=== PATIENT | female | born 1990 | race Caucasian/White ===

== ENCOUNTER 2021-10-18 05:44 | Day surgery (SDC) | payer MEDICAID, SELFPAY ==
[2021-10-18 06:21] VITALS: BP 104/68; PULSE 85; RESP 18; TEMP 36.8; O2SAT 99; BMI 31.0
[2021-10-18] MEDS: Lactated Ringers 1,000 ML 15 ML IV (06:43)
[2021-10-18 06:45] LABS: Internal QC Validated? YES +Cl - CLEAR BKGD; Pregnancy, Urine Negative Negative
[2021-10-18 06:51] LABS: Hematocrit 40.2 % (37-47); Hemoglobin 13.7 g/dL (12.0-15.0); Mean Corp Hgb Conc 34.1 g/dL (32-36); Mean Corpuscular Hgb 31.9 pg (27.0-32.0); Mean Corpuscular Volume 93.7 fL (81-99); Mean Platelet Vol. 8.6 fl (6.2-12.0); Platelet Count 350 K/mm3 (150-450); RBC Distribution Width CV 11.5 % (11.6-14.6); RBC Distribution Width SD 38.9 fl (35.1-43.9); Red Blood Count 4.29 M/mm3 (4.2-5.4); White Blood Count 7.6 K/mm3 (4.4-11.0)
--- NOTE | 2021-10-18 07:30 | EMB_PTH ---
PATIENT: RAMÓN KERR LOC: [facility] [place][id number] AGE/SX: 31/F ROOM: RE10/18/[address]: Dr. Veronika Chery DO : 1990 BED: DIS: 10/18/2021 SPEC #: [id number] RECD: 10/18/21 12:57 STATUS: AYE HICKEY #: [id number] YUNIEL: 10/18/21 07:[address]: Veronika Chery DEPT: SURGICAL PATHOLOGY RECD BY: Samira Sullivan ENTERED: 10/18/21 13:33 SP TYPE: ENDOM BX/C OTHR DR: Dr. Grant Prince MD Tissues: Endometrium, NOS Procedures: Surgery Specimen Level IV HEADER OPERATION: Hysteroscopy, D & C Symphion, polypectomy PRE-OP DIAGNOSIS: DUB, uterine polyp on US TISSUE SUBMITTED: Endometrial curettings MICROSCOPIC DIAGNOSIS Endometrial curettings: Scant minute fragment of benign endometrial tissue. Fragments of benign ecto- and endocervical mucosa with chronic inflammation and squamous metaplasia, blood and mucous. See comment. VINITA:paige 10/19/2021 COMMENT The specimen predominantly consists of blood, fragments of ecto- and endocervical mucosa. Further evaluation of endometrium is not possible due to scant fragment of endometrial tissue. Clinical correlation and appropriate follow up are necessary. MICROSCOPIC DESCRIPTION Slides are reviewed. GROSS DESCRIPTION Received in fixative is one container labeled with the patient's name and designated endometrial curettings. The specimen consists of multiple fragments of hemorrhagic soft tissue that in aggregate measure 2.5 x 2 x 0.1 cm. The specimen is totally submitted in one cassette. / VINITA:paige 10/18/21 TC: Cannot code CPT: 51247
[2021-10-18] MEDS: Lidocaine 1% (30 ml sdv) 30 ML Vial (07:45)
--- NOTE | 2021-10-18 08:11 | DCINST_ITS ---
Discharge Instructions Diet Discharge Diet: No restrictions Activity Discharge Activity: Return to Normal Activity, May Not Drive (for 24 hours after surgery) and May Shower May resume sexual activity in: 1 week (no intercourse, tampons, hot tubs, tub b aths for 1 week) Weight Bearing Status: Weight bearing as tolerated Lifting Restrictions: none Dressing / Incision Call your doctor if you observe: Fever of 101 or Higher, Numbness or Tingling, Inability to urinate, Inability to have a bowel movement, Using more than 1 pad per hour, Shortness of breath, Dizziness, Swelling in the ankles, Chest pain, Increased palpitations (irregular heartbeat), Calf discomfort and Uncontrolled pain Follow Up Care Please Follow Up With: Vik When: 1-2 weeks Test Results: Test results from this visit will be discussed in further detail at your follow-up appointment, if applicable. Discharge Plan Admission Primary Reason for Your Visit: surgery Attending Provider: Veronika Chery Primary Care Provider: Grant Prince Discharge Orders/Prescriptions Prescriptions: New ibuprofen 800 mg tablet 800 mg PO Q8H PRN (Reason: pain) Qty: 30 RF: 0 Continued multivitamin Tablet 1 tab PO DAILY RF: 0 trospium 20 mg Tablet 20 mg PO BID RF: 0 phentermine 37.5 mg tablet 37.5 mg PO DAILY RF: 0 Discontinued norethindrone acetate 5 mg Tablet 5 mg PO TID PRN (Reason: Bleeding) RF: 0 Referrals / Follow Up: Grant Prince MD [Primary Care Provider] - Disposition Disposition (needs filled in before D/C Order can be placed): Home, Self Care
--- NOTE | 2021-10-18 08:14 | PCM.OPRPT ---
Problems Associated Problem List Diagnoses (1) DUB (dysfunctional uterine bleeding): (2) Uterine polyp: Report of Operation Date of Procedure: 10/18/21 Pre-Operative Diagnosis: DUB, uterine polyp on pelvic ultrasound Post-Operative Diagnosis: As above Surgery/Procedure Performed:: Attempted hysteroscopy, D&C Description of Surgical Findings:: Stenotic cervix. Severely anteverted uterus. Given anteverted uterus, unable to advance hysteroscope into the uterine cavity. Minimal descent of uterus and cervix. Surgeon: Vik offset press operator helper: None Type of Anesthesia: Local MAC Special Medications: None Specimen's removed: Endometrial curettings Drains: None Estimated Blood Loss (mL): < 50 cc Fluids Replaced: See anesthesia record Description of Procedure: The patient was taken to the operating room where MAC anesthesia was found to be adequate. She was prepped and draped in the dorsal lithotomy position using yellow fin stirrups. The uterus was noted to be anteverted on exam and normal in size. 10 cc of 1% lidocaine with epinephrine was injected circumferentially around the cervix. A weighted speculum was placed to expose the cervix. A single tooth tenaculum was placed on the anterior lip of the cervix. With traction on the single tooth tenaculum, the cervix was serially dilated to accommodate the hysteroscope. The internal os of the cervix was noted to be stenotic at time of dilation. The uterus sounded to 8 cm. The hysteroscope was attempted to be advanced into the uterus, and was unable to be advanced due to the uterus being anteverted. The cervical canal was visualized with the hysteroscope, and the hysteroscope was unable to be directed through the canal even with direct visualization. The hysteroscope was removed and the cervix was dilated to 26 mm. The single tooth tenaculum was placed on the posterior lip of the cervix, and traction was applied. The hysteroscope was then attempted to be advanced into the uterus, and again unable to be advanced due to the uterus being severely anteverted. The hysteroscope was removed. The uterine sound was again passed noting a cavity length of 8 cm. The sharp curettage was bent to a curve to be able to pass it into the uterine cavity. A gentle curettage was performed with a pass along each uterine wall for a total of 4 passes. The endometrial curettings were sent to pathology for review. All instruments were removed from the vagina. Bleeding was hemostatic. A vaginal sweep was performed. Instrument and sponge counts were correct. The patient was taking to the recovery room in stable condition. Grafts/Implants Used: None Procedure Start Time: 07:42 Procedure Stop Time: 08:07 Complications None Admit VTE Documentation VTE Present on Admission: No VTE Mechan Device Prophylaxis: SCD's VTE Pharm Prophylaxis ordered?: No
[2021-10-18 08:15] VITALS: BP 104/68; BP 108/71; PULSE 83; RESP 16; TEMP 36.6; O2SAT 93
[2021-10-18 08:20] VITALS: BP 104/68; BP 105/79; PULSE 85; RESP 16; O2SAT 94
[2021-10-18 08:25] VITALS: BP 104/68; BP 109/66; PULSE 86; RESP 16; O2SAT 95
[2021-10-18 08:30] VITALS: BP 103/79; BP 104/68; PULSE 77; RESP 16; TEMP 36.1; O2SAT 92
[2021-10-18] MEDS: HYDROcodone Bitartrate/Apap 5/325 Tablet PO (09:04)
[2021-10-18 09:40] VITALS: BP 104/68; BP 98/72; PULSE 70; RESP 16; TEMP 36.2; O2SAT 99
== END 2021-10-18 09:40 | disposition home or self-care (01) ==
LOC: SDC 05:45 → AC 05:46
PROVIDERS: Anesthesiology; PCP Family Medicine; Referring Provider Obstetrics & Gynecology; Visit Provider Obstetrics & Gynecology
PROC: 0UB98ZZ Excision of Uterus, Via Natural or Artificial Opening Endoscopic (ICD-10-PCS; CPT 58558; principal; 2021-10-18 07:15)
DX: N93.8 Other specified abnormal uterine and vaginal bleeding (principal); N84.0 Polyp of corpus uteri; N88.2 Stricture and stenosis of cervix uteri; Z86.16 Personal history of COVID-19; Z86.14 Personal history of Methicillin resistant Staphylococcus aureus infection; F17.200 Nicotine dependence, unspecified, uncomplicated
CPT/HCPCS: 00952; 58558; 81025; 85027; 86850; 86900; 86901; 87426; 88305; C9803; J7120; J2405